=== PATIENT | female | born 1965 | race African-American/Black ===

== ENCOUNTER 2017-08-31 18:32 | Inpatient (IN) | payer OTHER ==
[~2017-08-31] VITALS: Ht 167.6 cm; Wt 63.5 kg
== END 2017-09-02 19:43 | DRG 761 ==
LOC: ER 18:32 → OB/GYN 09-01 12:32
PROC: 30233N1 Transfusion of Nonautologous Red Blood Cells into Peripheral Vein, Percutaneous Approach (ICD-10-PCS; principal; 2017-09-01)
DX: N93.8 Other specified abnormal uterine and vaginal bleeding (principal); D50.0 Iron deficiency anemia secondary to blood loss (chronic)